=== PATIENT | female | born 1985 | race Hispanic/Latino ===

== ENCOUNTER 2017-11-06 12:43 | Emergency (ER) | payer SELFPAY ==
[2017-11-06] MEDS ORDERED: XYLOCAINE 1% MPF 5 mL INFILTRATI ONE (14:48)
[2017-11-06] MEDS ORDERED: LIDOCAINE VISCOUS 2% PO ONE (14:48)
[2017-11-06] MEDS ORDERED: TYLENOL PO ONE (14:48)
[2017-11-06] MEDS ORDERED: ROCEPHIN IM ONE (14:48)
--- NOTE | 2017-11-06 14:50 | Emergency Department Report ---
ED General Adult HPI - General Chief complaint: Sore Throat Stated complaint: STREP THROAT Time Seen by Provider: 11/06/17 14:41 Source: patient Mode of arrival: Ambulatory Limitations: No Limitations - History of Present Illness Initial comments: This is a 32-year-old female who is previously unknown to this provider. Has a history of DVT and is not currently on Lovenox. Also has a history of morbid obesity and inflamed tonsils. Presents to the ER with sore throat, neck pain, reported change in voice. Symptoms have been going on for the past few days. Her symptoms are intermittent, I do not have exacerbating or relieving factors. Reports that she recently had oral sex with a male partner who tested positive for gonorrhea/chlamydia. Patient reports that her tonsils are "always swollen" and this doesn't feel like her tonsils. -: Gradual Location: neck Radiation: non-radiation Quality: aching Consistency: intermittent Improves with: rest Worsens with: movement Associated Symptoms: other (patient reports feeling very anxious). denies: confusion, chest pain, cough, diaphoresis, fever/chills, headaches, loss of appetite, malaise, nausea/vomiting, shortness of breath, syncope, weakness - Related Data Previous Rx's Medication Instructions Recorded Last Taken Type Ondansetron [Zofran TAB] 4 mg PO Q6HR PRN #12 tablet 01/21/14 Unknown Rx HYDROcodone/APAP 10-325 [[place] 1 each PO Q6HR PRN #20 tablet 01/25/14 Unknown Rx 10/325] Sulfamethoxazole/Trimethoprim 1 each PO BID #28 tablet 01/25/14 Unknown Rx [Bactrim Ds] Acetaminophen/Codeine 1 tab PO Q6H PRN #15 tab 11/05/14 Unknown Rx [Acetaminophen-Codeine #3 TAB] Amoxicillin [Trimox CAP] 500 mg PO Q8H #30 capsule 11/05/14 Unknown Rx predniSONE [Deltasone] 50 mg PO QDAY #5 tab 11/05/14 Unknown Rx Enoxaparin [Lovenox] 180 mg SQ Q12HR #30 syringe 05/26/16 Unknown Rx Acetaminophen [Tylenol Arthritis] 650 mg PO Q6HR PRN #30 tablet.er 11/06/17 Unknown Rx Ibuprofen [Motrin] 600 mg PO Q8H PRN #30 tablet 11/06/17 Unknown Rx Ondansetron [Zofran Odt] 4 mg PO Q8HR PRN #20 tab.rapdis 11/06/17 Unknown Rx Allergies Allergy/AdvReac Type Severity Reaction Status Date / Time No Known Allergies Allergy Verified 11/08/13 09:56 ED Review of Systems ROS: Stated complaint: STREP THROAT Other details as noted in HPI ED Past Medical Hx - Past Medical History Previous Medical History?: Yes Hx Congestive Heart Failure: No Hx Diabetes: No Hx Deep Vein Thrombosis: Yes Hx Pulmonary Embolism: No Hx Asthma: No Hx COPD: No Hx Tuberculosis: No Additional medical history: morbid obesity - Surgical History Past Surgical History?: No - Social History Smoking Status: Never Smoker Substance Use Type: Non Opiate Pain - Medications Home Medications: Home Medications Medication Instructions Recorded Confirmed Last Taken Type Ondansetron [Zofran TAB] 4 mg PO Q6HR PRN #12 tablet 01/21/14 Unknown Rx HYDROcodone/APAP 10-325 [[place] 1 each PO Q6HR PRN #20 tablet 01/25/14 Unknown Rx 10/325] Sulfamethoxazole/Trimethoprim 1 each PO BID #28 tablet 01/25/14 Unknown Rx [Bactrim Ds] Acetaminophen/Codeine 1 tab PO Q6H PRN #15 tab 11/05/14 Unknown Rx [Acetaminophen-Codeine #3 TAB] Amoxicillin [Trimox CAP] 500 mg PO Q8H #30 capsule 11/05/14 Unknown Rx predniSONE [Deltasone] 50 mg PO QDAY #5 tab 11/05/14 Unknown Rx Enoxaparin [Lovenox] 180 mg SQ Q12HR #30 syringe 05/26/16 Unknown Rx Acetaminophen [Tylenol Arthritis] 650 mg PO Q6HR PRN #30 tablet.er 11/06/17 Unknown Rx Ibuprofen [Motrin] 600 mg PO Q8H PRN #30 tablet 11/06/17 Unknown Rx Ondansetron [Zofran Odt] 4 mg PO Q8HR PRN #20 tab.rapdis 11/06/17 Unknown Rx ED Physical Exam - General Limitations: No Limitations General appearance: alert, in no apparent distress, obese - Head Head exam: Present: atraumatic, normocephalic - Eye Eye exam: Present: normal appearance, EOMI - ENT ENT exam: Present: normal exam, normal orophraynx, mucous membranes moist, normal external ear exam, other (the patient is speaking in full sentences. There is no stridor. Patient has obvious hypertrophied tonsils. There are no obvious exudates. The uvula is not edematous or boggy) - Neck Neck exam: Present: normal inspection, full ROM - Respiratory Respiratory exam: Present: normal lung sounds bilaterally. Absent: respiratory distress - Cardiovascular Cardiovascular Exam: Present: normal rhythm, tachycardia, normal heart sounds. Absent: systolic murmur, diastolic murmur, rubs, gallop - GI/Abdominal GI/Abdominal exam: Present: soft, normal bowel sounds. Absent: distended, tenderness, guarding, rebound, rigid, pulsatile mass - Extremities Exam Extremities exam: Present: normal inspection, full ROM, normal capillary refill. Absent: pedal edema, joint swelling - Back Exam Back exam: Present: normal inspection, full ROM. Absent: paraspinal tenderness , vertebral tenderness - Neurological Exam Neurological exam: Present: alert, oriented X3, CN II-XII intact, normal gait, other (Extraocular movements intact. Tongue midline. No facial droop. Facial sensation intact to light touch in the V1, V2, V3 distribution bilaterally. 5 and 5 strength in 4 extremities.. Sensation is intact to light touch in 4 extremities.). Absent: motor sensory deficit - Psychiatric Psychiatric exam: Present: normal affect, normal mood - Skin Skin exam: Present: warm, dry, intact, normal color. Absent: rash ED Course Vital Signs 11/06/17 11/06/17 11/06/17 12:53 15:25 16:13 Temperature 98.1 F 97.5 F L Pulse Rate 112 H 108 H Respiratory 22 18 18 Rate Blood Pressure 159/88 Blood Pressure 134/88 [Right] O2 Sat by Pulse 98 100 Oximetry 11/06/17 11/06/17 16:25 17:56 Temperature Pulse Rate Respiratory 18 18 Rate Blood Pressure Blood Pressure [Right] O2 Sat by Pulse Oximetry - Reevaluation(s) Reevaluation #1: 11/06/17 16:30 Differential diagnosis, including without limited to: Epiglottitis, pharyngitis , gonococcal pharyngitis, uvulitis, tonsillitis Assessment and plan: 32-year-old female who endorses subjective change in voice , neck pain, sore throat. She is afebrile with reassuring vital signs with the exception of tachycardia. She has no stridor, and there is no pain with deep palpation of the superficial neck structures. She does endorse some concern about a recent sexual contact who's had gonorrhea. X-ray demonstrates nonspecific abnormalities of the epiglottic margins. Patient medicated empirically with ceftriaxone, azithromycin. CT scan of the neck is pending. Reevaluation #2: 11/06/17 18:21 CT scan shows cervical adenopathy, otherwisenegative in findings. Her tachycardia is much improved on my exam, and she reports that she feels much better. She is tolerating liquid feeds without difficulty, and has been observed under my direct supervision for over 5 hours. Patient will be discharged with instructions to follow with outpatient primary care and otolaryngology. CT scan report is reviewed and appreciated, tonsillar hypertrophy is noted on physical examination for patient this is chronic. ED Medical Decision Making - Lab Data Result diagrams: 11/06/17 16:45 11/06/17 16:45 Vital Signs 11/06/17 11/06/17 11/06/17 12:53 15:25 16:13 Temperature 98.1 F 97.5 F L Pulse Rate 112 H 108 H Respiratory 22 18 18 Rate Blood Pressure 159/88 Blood Pressure 134/88 [Right] O2 Sat by Pulse 98 100 Oximetry - Radiology Data Radiology results: report reviewed, image reviewed ort Referring Physician: MANNIE PARKER Patient Name: CARLOS MANUEL ENCARNACION Date of : 1985 Sex: Female Report Date: 2017-11-06 Report Status: Finalized Findings [address] [address] XRay Report Signed Patient: CARLOS MANUEL ENCARNACION MR#: [id number] : 1985 Acct:[id number] Age/Sex: 32 / F ADM Date: 11/06/17 Loc: ED Attending Dr: Ordering Physician: MANNIE PARKER MD Date of Service: 11/06/17 Procedure(s): XR neck soft tissue Accession Number(s): [id number] cc: MANNIE PARKER MD Fluoro Time In Minutes: FINAL REPORT EXAM: XR NECK SOFT TISSUE HISTORY: neck pain TECHNIQUE: AP and lateral views of the neck soft tissues PRIORS: None. FINDINGS: The tracheal air shadow is patent throughout. No prevertebral soft tissue swelling is seen. The epiglottis demonstrates hazy margins but normal thickness. Findings are likely related to motion. The adenoids and lingual tonsils are prominent. Bony structures demonstrate degenerative disc narrowing at C4-C5 with spurring anteriorly. IMPRESSION: 1. Prominent adenoids and lingual tonsils 2. Epiglottic margins are hazy which may be due to motion. Thickness is normal however. 3. Moderate disc space narrowing at C4-C5. Transcribed By: [facility] Dictated By: JUAN KONG MD Electronically Authenticated By: JUAN KONG MD Signed Date/Time: 11/06/171156 DD/ 56 TD/TT: 11/06/171156 Critical care attestation.: If time is entered above; I have spent that time in minutes in the direct care of this critically ill patient, excluding procedure time. ED Disposition Clinical Impression: Cervical lymphadenopathy Disposition: TO HOME OR SELFCARE Is pt being admited?: No Does the pt Need Aspirin: No Condition: Stable Instructions: Lymphadenopathy (ED) Additional Instructions: Cultures were sent today, results will be available in the next 3-5 days. Her primary care doctor contact the medical records department to obtain culture results. Follow-up with the primary care doctor for further outpatient STD testing/screening, including syphilis, hepatitis, HIV. Avoid sexual contact and into the see until cleared by her primary care doctor. Follow up with the primary care doctor or otolaryngology specialist for cervical lymph nodes. Dr. Srivastava is a local otolaryngology specialist. Return to the ER right away with fevers, chills, chest pain, shortness of breath, intractable nausea or vomiting , inability to speak, inability to breathe. Follow-up with the primary care doctor or [place] studies director within the next 2 weeks. Referrals: PRIMARY CARE, [Primary Care Provider] - 3-5 Days JUAN MONGE MD [Staff Physician] - 3-5 Days GERONIMO GILMORE MD [Staff Physician] - 3-5 Days
--- NOTE | 2017-11-06 15:59 | XRay Report ---
FINAL REPORT EXAM: XR NECK SOFT TISSUE HISTORY: neck pain TECHNIQUE: AP and lateral views of the neck soft tissues PRIORS: None. FINDINGS: The tracheal air shadow is patent throughout. No prevertebral soft tissue swelling is seen. The epiglottis demonstrates hazy margins but normal thickness. Findings are likely related to motion. The adenoids and lingual tonsils are prominent. Bony structures demonstrate degenerative disc narrowing at C4-C5 with spurring anteriorly. IMPRESSION: 1. Prominent adenoids and lingual tonsils 2. Epiglottic margins are hazy which may be due to motion. Thickness is normal however. 3. Moderate disc space narrowing at C4-C5.
[2017-11-06] MEDS ORDERED: ZITHROMAX ONE (16:10)
[2017-11-06] MEDS: ZITHROMAX PO ONE ×2 (16:11→16:47)
[2017-11-06 16:15] VITALS: BP 134/88
[2017-11-06] MEDS ORDERED: DECADRON IV ONE (16:27)
[2017-11-06] MEDS ORDERED: NACL 0.9% 500 ML 500 ML IV ONE (16:27)
[2017-11-06 17:00] LABS: Basophils % (Auto) 0.4 % (0.0-1.8); Eosinophils # (Auto) 0.1 K/mm3 (0.0-0.4); Eosinophils % (Auto) 0.6 % (0.0-4.3); Hematocrit 43.2 % (30.3-42.9); Hemoglobin 14.2 gm/dl (10.1-14.3); Lymphocytes # (Auto) 2.3 K/mm3 (1.2-5.4); Lymphocytes % (Auto) 20.5 % (13.4-35.0); Mean Corpuscular HGB Conc 33 % (30-34); Mean Corpuscular Hemoglobin 30 pg (28-32); Mean Corpuscular Volume 90 fl (79-97); Monocytes # (Auto) 0.9 K/mm3 (0.0-0.8); Monocytes % (Auto) 7.7 % (0.0-7.3); Platelet Count 273 K/mm3 (140-440); Red Blood Count 4.81 M/mm3 (3.65-5.03); Red Cell Distribution Width 14.5 % (13.2-15.2)
[2017-11-06 17:19] LABS: BUN/Creatinine Ratio 23; Blood Urea Nitrogen 14 mg/dL (7-17); Calcium 8.8 mg/dL (8.4-10.2); Hemolysis Index 11
[2017-11-06] MEDS ORDERED: NACL 0.9% 1000 ML 1,000 ML ONE (17:23)
[2017-11-06] MEDS ORDERED: TORADOL IV ONE (17:31)
--- NOTE | 2017-11-06 18:07 | Cat Scan Report ---
FINAL REPORT PROCEDURE: CT NECK W CON TECHNIQUE: Computerized axial tomography of the soft tissue neck was performed following the IV injection of iodinated nonionic contrast. HISTORY: neck pain COMPARISON: No prior studies are available for comparison. FINDINGS: Skull and scalp: Normal. Paranasal sinuses: Normal. Nasopharynx: Normal . Oral cavity: There is prominence of bilateral tonsillar pillars. Correlate with exam. No organized abscess is seen. Epiglottis/vallecula: Normal . Larynx/pyriform sinuses: Unremarkable. Thyroid gland: There is streak artifact. No gross abnormality is seen. Lymph nodes: There are significantly enlarged bilateral level 2 cervical lymph nodes, which measure up to 15 millimeters short axis. Salivary glands: Normal . Upper thorax: Normal . IMPRESSION: Significant bilateral cervical lymphadenopathy. Prominence of bilateral tonsillar pillars. Correlate with exam.
== END 2017-11-06 18:57 | disposition home or self-care (01) ==
LOC: ED 12:43
DX: R59.1 Generalized enlarged lymph nodes (principal)
CPT/HCPCS: 36415; 70360; 70491; 80048; 84702; 85025; 87591; 96372; 96374; 96375; 99284; J0696; J1100; J1885; J7030; Q9967

== ENCOUNTER 2017-12-25 12:57 | Emergency (ER) | payer SELFPAY ==
[2017-12-25] MEDS ORDERED: TYLENOL PO ONE (13:35)
[2017-12-25] MEDS ORDERED: NACL 0.9% 500 ML 500 ML IV ONE (13:35)
--- NOTE | 2017-12-25 13:37 | Event Note ---
Date: 12/25/17 32-year-old female presenting with left lower extremity pain, redness, swelling , on clinical exam resembles DVT versus lymphangitis, also complains of cough and shortness of breath. Patient reports being diagnosed with a blood clot at [facility] a few months ago, was on Coumadin therapy, and is now currently noncompliant. Of note, patient also had a throat culture here back in October which demonstrated gonorrhea, patient failed to follow-up. Patient will require CTA of the chest, labs, left lower extremity DVT study, and further management based on the aforementioned studies. Patient is hemodynamically stable at this time, and will be triaged to the main ER waiting area. Vital Signs 12/25/17 13:03 Temperature 98.0 F Pulse Rate 94 H Respiratory 18 Rate Blood Pressure 137/75 O2 Sat by Pulse 99 Oximetry
--- NOTE | 2017-12-25 13:57 | Emergency Department Report ---
ED General Adult HPI - General Chief complaint: Extremity Problem,Nontraumatic Stated complaint: LEFT LEG PAIN Time Seen by Provider: 12/25/17 13:25 Source: patient Mode of arrival: Ambulatory Limitations: No Limitations - History of Present Illness Initial comments: Patient is 32 years old morbidly obese female with history of DVT and PE in August 2017 patient stated that she was admitted to the hospital at [facility] for 7 days of heparin and then coumadin. Patient stated that she does not remember the last time she took her Coumadin because he ran out of it. She presented today with left leg pain and redness and swelling over the last 2-3 days associated with cough and shortness of breath patient stated that this is similar to her previous presentation. Patient denied any fever chest pain, nausea or vomiting. - Related Data Previous Rx's Medication Instructions Recorded Last Taken Type Ondansetron [Zofran TAB] 4 mg PO Q6HR PRN #12 tablet 01/21/14 Unknown Rx HYDROcodone/APAP 10-325 [[place] 1 each PO Q6HR PRN #20 tablet 01/25/14 Unknown Rx 10/325] Sulfamethoxazole/Trimethoprim 1 each PO BID #28 tablet 01/25/14 Unknown Rx [Bactrim Ds] Acetaminophen/Codeine 1 tab PO Q6H PRN #15 tab 11/05/14 Unknown Rx [Acetaminophen-Codeine #3 TAB] Amoxicillin [Trimox CAP] 500 mg PO Q8H #30 capsule 11/05/14 Unknown Rx predniSONE [Deltasone] 50 mg PO QDAY #5 tab 11/05/14 Unknown Rx Enoxaparin [Lovenox] 180 mg SQ Q12HR #30 syringe 05/26/16 Unknown Rx Acetaminophen [Tylenol Arthritis] 650 mg PO Q6HR PRN #30 tablet.er 11/06/17 Unknown Rx Ibuprofen [Motrin] 600 mg PO Q8H PRN #30 tablet 11/06/17 Unknown Rx Ondansetron [Zofran Odt] 4 mg PO Q8HR PRN #20 tab.rapdis 11/06/17 Unknown Rx Allergies Allergy/AdvReac Type Severity Reaction Status Date / Time No Known Allergies Allergy Verified 11/08/13 09:56 ED Review of Systems ROS: Stated complaint: LEFT LEG PAIN Other details as noted in HPI Comment: All other systems reviewed and negative Constitutional: denies: chills, fever Respiratory: cough, shortness of breath, SOB with exertion Cardiovascular: denies: chest pain, palpitations, dyspnea on exertion Gastrointestinal: denies: abdominal pain, nausea, vomiting, diarrhea, constipation, hematemesis Neurological: denies: headache, weakness, numbness, paresthesias ED Past Medical Hx - Past Medical History Hx Congestive Heart Failure: No Hx Diabetes: No Hx Deep Vein Thrombosis: Yes Hx Pulmonary Embolism: No Hx Asthma: No Hx COPD: No Hx Tuberculosis: No Additional medical history: morbid obesity - Social History Smoking Status: Never Smoker Substance Use Type: None - Medications Home Medications: Home Medications Medication Instructions Recorded Confirmed Last Taken Type Ondansetron [Zofran TAB] 4 mg PO Q6HR PRN #12 tablet 01/21/14 Unknown Rx HYDROcodone/APAP 10-325 [[place] 1 each PO Q6HR PRN #20 tablet 01/25/14 Unknown Rx 10/325] Sulfamethoxazole/Trimethoprim 1 each PO BID #28 tablet 01/25/14 Unknown Rx [Bactrim Ds] Acetaminophen/Codeine 1 tab PO Q6H PRN #15 tab 11/05/14 Unknown Rx [Acetaminophen-Codeine #3 TAB] Amoxicillin [Trimox CAP] 500 mg PO Q8H #30 capsule 11/05/14 Unknown Rx predniSONE [Deltasone] 50 mg PO QDAY #5 tab 11/05/14 Unknown Rx Enoxaparin [Lovenox] 180 mg SQ Q12HR #30 syringe 05/26/16 Unknown Rx Acetaminophen [Tylenol Arthritis] 650 mg PO Q6HR PRN #30 tablet.er 11/06/17 Unknown Rx Ibuprofen [Motrin] 600 mg PO Q8H PRN #30 tablet 11/06/17 Unknown Rx Ondansetron [Zofran Odt] 4 mg PO Q8HR PRN #20 tab.rapdis 11/06/17 Unknown Rx ED Physical Exam - General Limitations: No Limitations General appearance: alert, in no apparent distress - Head Head exam: Present: atraumatic, normocephalic - ENT ENT exam: Present: normal exam, normal orophraynx, mucous membranes moist - Neck Neck exam: Present: normal inspection, full ROM. Absent: tenderness, meningismus - Respiratory Respiratory exam: Present: normal lung sounds bilaterally. Absent: respiratory distress, wheezes, rales, rhonchi, stridor - Cardiovascular Cardiovascular Exam: Present: regular rate, normal rhythm, normal heart sounds - GI/Abdominal GI/Abdominal exam: Present: soft. Absent: distended, tenderness, guarding, rebound, rigid - Extremities Exam Extremities exam: Present: tenderness, other (left leg tenderness and erythema.) - Back Exam Back exam: Present: normal inspection, full ROM - Neurological Exam Neurological exam: Present: alert, oriented X3, CN II-XII intact, normal gait - Skin Skin exam: Present: warm, intact, normal color ED Course Vital Signs 12/25/17 13:03 Temperature 98.0 F Pulse Rate 94 H Respiratory 18 Rate Blood Pressure 137/75 O2 Sat by Pulse 99 Oximetry - Reevaluation(s) Reevaluation #1: 12/25/17 16:07 Patient informed about our ultrasound of the left lower leg and CTA of the chest. I advised patient to follow-up with her primary care physician. Patient pulmonary that she was on 15 mg of Coumadin and I will give 10 day supply until she will see her doctor. I advised that to check her INR in the next 2-3 days. Patient understood the instruction and she stated that she will follow up with a primary doctor. Patient is currently asymptomatic with no chest pain or shortness of breath. ED Medical Decision Making - Lab Data Result diagrams: 12/25/17 13:43 12/25/17 13:43 - Radiology Data Radiology results: report reviewed Referring Physician: MANNIE PARKER Patient Name: CARLOS MANUEL ENCARNACION Date of : 1985 Sex: Female Report Date: 2017-12-25 Report Status: Finalized Findings [facility] [address] [place] [address] Cat Scan Report Signed Patient: CARLOS MANUEL ENCARNACION MR#: [id number] : 1985 Acct:[id number] Age/Sex: 32 / F ADM Date: 12/25/17 Loc: ED Attending Dr: Ordering Physician: MANNIE PARKER MD Date of Service: 12/25/17 Procedure(s): CT angio chest Accession Number(s): [id number] cc: MANNIE PARKER MD FINAL REPORT EXAM: CT ANGIO CHEST HISTORY: sob cough hx of pe TECHNIQUE: CTA of chest with IV contrast. Coronal and sagittal and MIP reconstructed images provided. PRIORS: None currently available. FINDINGS: No pneumothorax. No effusion. No consolidation. No endobronchial lesion. Suboptimal contrast effect. No pulmonary embolus in the main pulmonary artery. An embolus in the distal half of the right and left pulmonary arteries, lobar arteries, segmental arteries, and subsegmental arteries cannot be excluded. No aortic aneurysm. No dissection. Heart size unremarkable. No pericardial effusion. There is no axillary adenopathy. There is no hilar or mediastinal mass or adenopathy. Images of the esophagus are unremarkable. Small hiatal hernia. Partially imaged gallbladder suggest gallstones. Partially imaged spleen is enlarged. No suspicious osseous lesions on this limited examination of the skeleton. Metastatic disease better evaluated with bone scan. Degenerative changes are present in the spine. IMPRESSION: Suboptimal contrast effect. No pulmonary embolus in the main pulmonary artery. An embolus in the distal half of the right and left pulmonary arteries, lobar arteries, segmental arteries, and subsegmental arteries cannot be excluded. No aortic aneurysm or dissection. Possible gallstones. Small hiatal hernia. Suspect splenomegaly. Transcribed By: [facility] Dictated By: JOSE MARIA ARMSTRONG MD Electronically Authenticated By: JOSE MARIA ARMSTRONG MD Signed Date/Time: 12/25/171542 DD/ 42 TD/TT: 12/25/171542 Critical care attestation.: If time is entered above; I have spent that time in minutes in the direct care of this critically ill patient, excluding procedure time. ED Disposition Clinical Impression: Shortness of breath, Obesities, morbid, Superficial thrombophlebitis Disposition: TO HOME OR SELFCARE Is pt being admited?: No Condition: Stable Instructions: Superficial Thrombophlebitis (ED), Dyspnea (ED) Referrals: ENRIQUE GARCIA MD [Staff Physician] - 2-3 Days
[2017-12-25 14:02] LABS: Basophils % (Auto) 0.4 % (0.0-1.8); Eosinophils # (Auto) 0.2 K/mm3 (0.0-0.4); Hematocrit 42.3 % (30.3-42.9); Hemoglobin 13.5 gm/dl (10.1-14.3); Lymphocytes # (Auto) 2.4 K/mm3 (1.2-5.4); Mean Corpuscular HGB Conc 32 % (30-34); Mean Corpuscular Hemoglobin 29 pg (28-32); Mean Corpuscular Volume 91 fl (79-97); Monocytes # (Auto) 0.6 K/mm3 (0.0-0.8); Monocytes % (Auto) 7.1 % (0.0-7.3); Platelet Count 222 K/mm3 (140-440); Red Blood Count 4.63 M/mm3 (3.65-5.03); Red Cell Distribution Width 14.3 % (13.2-15.2)
[2017-12-25 14:10] LABS: BUN/Creatinine Ratio 18; Blood Urea Nitrogen 11 mg/dL (7-17); Calcium 8.6 mg/dL (8.4-10.2); Hemolysis Index 7
[2017-12-25 14:14] LABS: INR 0.88 (0.87-1.13)
[2017-12-25 14:15] LABS: Partial Thromboplastin Time 26.5 Sec. (24.2-36.6)
[2017-12-25] MEDS ORDERED: MORPHINE IV ONE (15:22)
[2017-12-25] MEDS ORDERED: ZOFRAN IV ONE (15:22)
--- NOTE | 2017-12-25 15:48 | Cat Scan Report ---
FINAL REPORT EXAM: CT ANGIO CHEST HISTORY: sob cough hx of pe TECHNIQUE: CTA of chest with IV contrast. Coronal and sagittal and MIP reconstructed images provided. PRIORS: None currently available. FINDINGS: No pneumothorax. No effusion. No consolidation. No endobronchial lesion. Suboptimal contrast effect. No pulmonary embolus in the main pulmonary artery. An embolus in the distal half of the right and left pulmonary arteries, lobar arteries, segmental arteries, and subsegmental arteries cannot be excluded. No aortic aneurysm. No dissection. Heart size unremarkable. No pericardial effusion. There is no axillary adenopathy. There is no hilar or mediastinal mass or adenopathy. Images of the esophagus are unremarkable. Small hiatal hernia. Partially imaged gallbladder suggest gallstones. Partially imaged spleen is enlarged. No suspicious osseous lesions on this limited examination of the skeleton. Metastatic disease better evaluated with bone scan. Degenerative changes are present in the spine. IMPRESSION: Suboptimal contrast effect. No pulmonary embolus in the main pulmonary artery. An embolus in the distal half of the right and left pulmonary arteries, lobar arteries, segmental arteries, and subsegmental arteries cannot be excluded. No aortic aneurysm or dissection. Possible gallstones. Small hiatal hernia. Suspect splenomegaly.
[2017-12-25 17:31] VITALS: BP 138/69
--- NOTE | 2017-12-29 10:42 | Vascular Lab Report ---
Left Lower Extremity Venous Duplex Study: Reason for Exam: Pain and swelling of the left lower extremity. Comments on the Right: A limited duplex study was done of the proximal veins of the right lower extremity. All veins visualized are freely compressible without evidence of internal echogenicity. Flow is spontaneous and phasic throughout. No evidence of acute or chronic thrombus is seen in any of the vessels visualized. Comments on the Left: Acute superficial venous thrombosis is seen in the greater saphenous vein extending from the distal thigh to the medial malleolus. The left popliteal vein has partially occluding chronic thrombus visible. The remaining veins visualized are freely compressible without evidence of internal echogenicity. Spontaneous and phasic flow is present proximally. Impression: Acute superficial venous thrombosis of the greater saphenous vein from the distal thigh to the medial malleolus of the left lower extremity. 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
== END 2017-12-25 17:31 | disposition home or self-care (01) ==
LOC: ED 12:57
DX: I80.292 Phlebitis and thrombophlebitis of other deep vessels of left lower extremity (principal); R06.00 Dyspnea, unspecified; Z86.718 Personal history of other venous thrombosis and embolism; Z86.711 Personal history of pulmonary embolism; Z79.02 Long term (current) use of antithrombotics/antiplatelets
CPT/HCPCS: 36415; 71275; 80048; 82550; 84702; 85025; 85610; 85730; 93971; 96374; 96375; 99284; J2270; J2405; J7040; Q9967

== ENCOUNTER 2018-01-30 19:45 | Emergency (ER) | payer OTHER ==
[2018-01-30] MEDS ORDERED: PERCOCET 5/325 ONE (19:58)
[2018-01-30] MEDS ORDERED: PERCOCET 5/325 PO PRN (20:01)
--- NOTE | 2018-01-30 20:37 | XRay Report ---
FINAL REPORT PROCEDURE: XR FOOT 3+V LT TECHNIQUE: LEFT foot radiographs, AP, lateral, and oblique views. CPT 31063 HISTORY: bruising/swelling lt foot injury COMPARISON: No prior studies are available for comparison. FINDINGS: Fracture (s) and/or Dislocation(s): Acute comminuted nondisplaced fractures are noted involving head and neck regions of 3rd through 5th metatarsals.. Alignment: Metatarsophalangeal joints and the other joints of the foot demonstrate normal alignment.. Joint space(s): Normal . Soft tissues: Moderate degree soft tissue swelling is noted over the dorsal aspect. Bone mineralization: Normal . Foreign bodies: None . Calcaneal spurring: Small calcaneal spur is noted. IMPRESSION: Acute fractures of 3rd through 5th metatarsals..
--- NOTE | 2018-01-30 23:46 | Emergency Department Report ---
ED Lower Extremity HPI - General Chief Complaint: Extremity Injury, Lower Stated Complaint: LEFT TOE PAIN Time Seen by Provider: 01/30/18 23:38 Source: patient, family Mode of arrival: Ambulatory Limitations: No Limitations - History of Present Illness Initial Comments: She reported that she fell down 2 steps and she fell and hit and twisted her left foot. She said her left toes was spent. She is reporting pain at 10 out of 10. Patient is a history of DVT and morbid obesity. She reports that she is taking Coumadin for history of DVT. Last menstrual period was 12/16/2017. Pain to her left foot is 10 out of 10 throbbing and achy . She denies any head injury. Injury is localized to her left foot. No medication prior to coming to the emergency room. She says she put some ice on it and it did not work. Pain worse with weightbearing and movement, touch better with rest. Positive numbness or tingling to her foot. MD Complaint: foot injury, fall -: This evening Injury: Foot: Left (left foot swelling, bruises and painful after injury), Toes : Left (left small toe with laceration) Type of Injury: hyperextension, laceration Place: home Severity: severe Severity scale (0 -10): 10 Improves With: cold therapy, immobilization Worsens With: weight bearing, movement, palpation Context: fall, walking Associated Symptoms: swelling, unable to bear weight. denies: snap/pop sensation, numbness, tingling Treatments Prior to Arrival: cold therapy - Related Data Previous Rx's Medication Instructions Recorded Last Taken Type Ondansetron [Zofran TAB] 4 mg PO Q6HR PRN #12 tablet 01/21/14 Unknown Rx HYDROcodone/APAP 10-325 [[place] 1 each PO Q6HR PRN #20 tablet 01/25/14 Unknown Rx 10/325] Sulfamethoxazole/Trimethoprim 1 each PO BID #28 tablet 01/25/14 Unknown Rx [Bactrim Ds] Acetaminophen/Codeine 1 tab PO Q6H PRN #15 tab 11/05/14 Unknown Rx [Acetaminophen-Codeine #3 TAB] Amoxicillin [Trimox CAP] 500 mg PO Q8H #30 capsule 11/05/14 Unknown Rx predniSONE [Deltasone] 50 mg PO QDAY #5 tab 11/05/14 Unknown Rx Enoxaparin [Lovenox] 180 mg SQ Q12HR #30 syringe 05/26/16 Unknown Rx Acetaminophen [Tylenol Arthritis] 650 mg PO Q6HR PRN #30 tablet.er 11/06/17 Unknown Rx Ondansetron [Zofran Odt] 4 mg PO Q8HR PRN #20 tab.rapdis 11/06/17 Unknown Rx Warfarin Sodium [Coumadin] 15 mg PO DAILY #10 tablet 12/25/17 Unknown Rx Cephalexin [Keflex] 500 mg PO Q8HR 10 Days #30 cap 01/31/18 Unknown Rx HYDROcodone/ACETAMINOPHEN [[place] 1 each PO Q6H PRN #12 tablet 01/31/18 Unknown Rx 7.5-325 Tablet] Ibuprofen [Motrin 600 MG tab] 600 mg PO Q8H PRN #21 tablet 01/31/18 Unknown Rx Allergies Allergy/AdvReac Type Severity Reaction Status Date / Time No Known Allergies Allergy Verified 11/08/13 09:56 ED Review of Systems ROS: Stated complaint: LEFT TOE PAIN Other details as noted in HPI Comment: All other systems reviewed and negative Constitutional: no symptoms reported Eyes: denies: eye discharge Respiratory: no symptoms reported Cardiovascular: denies: chest pain, palpitations, dyspnea on exertion, edema, syncope, paroxysmal nocturnal dyspnea Gastrointestinal: denies: abdominal pain, nausea, vomiting, diarrhea Genitourinary: denies: dysuria, hematuria Musculoskeletal: joint swelling, arthralgia. denies: back pain, myalgia Skin: change in color (bruises and to left foot and laceration to left small toe ) Neurological: abnormal gait. denies: headache, weakness, numbness, paresthesias ED Past Medical Hx - Past Medical History Previous Medical History?: Yes Hx Congestive Heart Failure: No Hx Diabetes: No Hx Deep Vein Thrombosis: Yes Hx Pulmonary Embolism: No Hx Asthma: No Hx COPD: No Hx Tuberculosis: No Additional medical history: morbid obesity - Surgical History Past Surgical History?: No - Family History Family history: no significant - Social History Smoking Status: Never Smoker Substance Use Type: None - Medications Home Medications: Home Medications Medication Instructions Recorded Confirmed Last Taken Type Ondansetron [Zofran TAB] 4 mg PO Q6HR PRN #12 tablet 01/21/14 Unknown Rx HYDROcodone/APAP 10-325 [[place] 1 each PO Q6HR PRN #20 tablet 01/25/14 Unknown Rx 10/325] Sulfamethoxazole/Trimethoprim 1 each PO BID #28 tablet 01/25/14 Unknown Rx [Bactrim Ds] Acetaminophen/Codeine 1 tab PO Q6H PRN #15 tab 11/05/14 Unknown Rx [Acetaminophen-Codeine #3 TAB] Amoxicillin [Trimox CAP] 500 mg PO Q8H #30 capsule 11/05/14 Unknown Rx predniSONE [Deltasone] 50 mg PO QDAY #5 tab 11/05/14 Unknown Rx Enoxaparin [Lovenox] 180 mg SQ Q12HR #30 syringe 05/26/16 Unknown Rx Acetaminophen [Tylenol Arthritis] 650 mg PO Q6HR PRN #30 tablet.er 11/06/17 Unknown Rx Ondansetron [Zofran Odt] 4 mg PO Q8HR PRN #20 tab.rapdis 11/06/17 Unknown Rx Warfarin Sodium [Coumadin] 15 mg PO DAILY #10 tablet 12/25/17 Unknown Rx Cephalexin [Keflex] 500 mg PO Q8HR 10 Days #30 cap 01/31/18 Unknown Rx HYDROcodone/ACETAMINOPHEN [[place] 1 each PO Q6H PRN #12 tablet 01/31/18 Unknown Rx 7.5-325 Tablet] Ibuprofen [Motrin 600 MG tab] 600 mg PO Q8H PRN #21 tablet 01/31/18 Unknown Rx ED Physical Exam - General Limitations: No Limitations General appearance: alert, in no apparent distress - Head Head exam: Present: atraumatic, normocephalic, normal inspection, other (normal examination) - Eye Eye exam: Present: normal appearance, PERRL, EOMI. Absent: nystagmus, periorbital swelling, periorbital tenderness Pupils: Present: normal accommodation - ENT ENT exam: Present: normal exam, normal orophraynx, mucous membranes moist - Neck Neck exam: Present: normal inspection, full ROM, other (no C-spine tenderness). Absent: tenderness, lymphadenopathy - Respiratory Respiratory exam: Present: normal lung sounds bilaterally. Absent: respiratory distress, chest wall tenderness - Cardiovascular Cardiovascular Exam: Present: normal rhythm, tachycardia, normal heart sounds - GI/Abdominal GI/Abdominal exam: Present: soft, rigid, normal bowel sounds. Absent: distended , tenderness, guarding, rebound, organomegaly, mass, bruit, pulsatile mass, hernia - Extremities Exam Extremities exam: Present: normal inspection, tenderness ( due to pain and injury left dorsal and plantar aspect of foot.), normal capillary refill, pedal edema (left foot), joint swelling (left foot), other (no clubbing or cyanosis to extremities. Patient with swelling to left foot. Unable to weight-bear on left foot due to injury. She has bruises and an ecchymotic area to left foot. Patient will laceration to left foot otherwise all other extremities are within normal limits. +2 pedal pulses. No neurovascular compromise to the extremities.). Absent: full ROM (Limited range of motion to left foot), calf tenderness - Expanded Lower Extremity Exam Left Hip exam: Present: normal inspection, full ROM, pelvic stability. Absent: tenderness, swelling, abrasion, laceration, ecchymosis, deformity, crepidus, dislocation, erythema, external rotation, internal rotation, shortening Upper Leg exam: Present: normal inspection, full ROM. Absent: tenderness, swelling, abrasion, laceration, ecchymosis, deformity, crepidus, dislocation, erythema Knee exam: Present: normal inspection, full ROM, full knee extension. Absent: tenderness, swelling, abrasion, laceration, ecchymosis, deformity, crepidus, dislocation, erythema, effusion, pain w/ pronation/supination, posterior draw sign, pain/laxity with valgus, pain/laxity with varus Lower Leg exam: Present: normal inspection, full ROM. Absent: tenderness, swelling, abrasion, laceration, ecchymosis, deformity, crepidus, dislocation, erythema, palpable cord, Dang's sign Ankle exam: Present: normal inspection, full ROM. Absent: tenderness, swelling , abrasion, laceration, ecchymosis, deformity, crepidus, dislocation, erythema Foot/Toe exam: Present: tenderness (left anterior and plantar aspect of foot), swelling (left foot including third fourth and fifth toes), laceration (left small toe), ecchymosis (left foot), tenderness at base of 5th metatarsal. Absent: normal inspection, full ROM (Limited range of motion to left foot), abrasion, deformity, crepidus, dislocation, erythema, amputation, puncture wound , foreign body, calcaneal tenderness, nail avulsion, subungual hematoma Neuro vascular tendon exam: Present: motor deficit (positive motor deficit to left foot due to injury, swelling and unable able to weight-bear. She has 3+ strength to left foot.), significant pain with passive ROM of distal joint. Absent: no vascular compromise, sensory deficit, tendon deficit, extremity cold to touch, pallor, abnormal 2-point discrimination, decreased fine/light touch, foot drop, peroneal nerve deficit Gait: Positive: unable to bear weight - Back Exam Back exam: Present: normal inspection, full ROM. Absent: tenderness, CVA tenderness (R), CVA tenderness (L), muscle spasm, paraspinal tenderness, vertebral tenderness, rash noted - Neurological Exam Neurological exam: Present: alert, oriented X3, abnormal gait (abnormal gait due to left foot injury.), motor sensory deficit (no sensory deficit but positive motor deficit due to decreased strength to left foot of 3/10.), reflexes normal - Psychiatric Psychiatric exam: Present: normal affect, normal mood - Skin Skin exam: Present: warm, dry, ecchymosis (ecchymotic to left foot dorsal aspect ), other (laceration to left fifth toe). Absent: cyanosis, diaphoretic, erythema, petechiae, pallor, abrasion - Expanded Skin Exam Expanded Type of lesion: Present: laceration (left fifth toe) Distribution of rash: LLE (left fifth toe) Description of rash: Present: size (circular 2 cm), tenderness, swelling. Absent: petechial, discharge, fluctuant, indurated ED Course Vital Signs 01/30/18 01/30/18 19:49 20:26 Temperature 98 F Pulse Rate 118 H Respiratory 20 18 Rate Blood Pressure 140/83 O2 Sat by Pulse 98 Oximetry Vital Signs 01/30/18 01/30/18 01/31/18 19:49 20:26 05:10 Temperature 98 F 98.0 F Pulse Rate 118 H 87 Respiratory 20 18 18 Rate Blood Pressure 140/83 Blood Pressure 114/81 [Left] O2 Sat by Pulse 98 100 Oximetry - Reevaluation(s) Reevaluation #1: 01/31/18 01:34 Patient received Ancef 1 g IM in emergency room for infection, Valium 10 mg by mouth 1, Benadryl 50 mg by mouth 1. She received oxycodone 2 tablets by mouth 1 and prior to coming back to the emergency room she received oxycodone 1 tablet by mouth. She also received booster 0.5 mL times one injection. Patient pain is better. Reevaluation #2: 01/31/18 04:35 Laceration to left fifth toe repaired please refer to procedure note for detail. Patient also with left posterior splint. Please refer to procedure note for detail she was given crutches. Patient hasn't tolerated suturing and splinting well. - Consultations Consultation #1: 01/31/18 00:[address] Cordell campbell regarding patient's fracture and he wants patient to be in a posterior splint with crutches and for patient to call this morning to schedule an appointment for follow-up visits. - Laceration /Wound Repair Left Posterior Lateral Plantar Toe Wound Location: lower extremity (left small toe) Wound Length (cm): 2 Wound's Depth, Shape: into muscle, irregular, stellate, contused tissue Wound Explored: no foreign body removed Irrigated w/ Saline (ccs): 500 Betadine Prep?: Yes Anesthesia: 0.5% Sensorcaine (0.5% Marcaine) Volume Anesthetic (ccs): 2 Wound Debrided: moderate Wound Repaired With: sutures Suture Size/Type: 3:0, proline Number of Sutures: 12 Layer Closure?: Yes Deep Layer Suture Size/Type: 5:0, chromic Number Deep Layer Sutures: 4 Sterile Dressing Applied?: Yes - Orthopedic Splinting/Casting Injury #1 Side: left Lower Extremity Injury Location: foot Lower Extremity Immobilizer: posterior splint Other Orthopedic Equipment: crutches Additional Comments: Status post splint placement patient will good color, sensation, temperature and movement to toes on left foot. ED Lower Extremity MDM - Radiology Data Radiology results: report reviewed X-ray of left foot reveals acute comminuted nondisplaced fractures are noted involving head and neck regions of third through fifth metatarsals. Metatarsophalangeal joints and other joints of the foot demonstrate normal alignment. Joint spaces are normal. Soft tissue moderate degree of soft tissue swelling is noted over the dorsal aspect. Bone mineralization normal foreign body none seen calcaneal spurring: Small calcaneus burn is noted. Patient with acute fractures of third through fifth metatarsals home. - Medical Decision Making ED course: Patient status post falling down 2 steps without any head injury but she twisted her foot and said that her foot was bent severely. X-ray of the left foot reveal patient with fractured tooth third through fifth metatarsal bone. She has significant soft tissue swelling dorsal aspect and also she has laceration to her left fifth toe. Please refer to x-ray results of the radiology section. Patient had a posterior ankle splint placed with crutches. Status post splint placement and she has good neurovascular check. Please refer to procedure note for splinting, crutches and suturing. Patient received a total of 3 Percocet throughout ED stay 5/325 mg for pain talk, she received Valium 10 mg by mouth, Ancef 1 g IM, Benadryl 50 mg by mouth 1. And she also receive Boostrix 0.5 mL to update tetanus. Patient stable throughout ED stay and her pain is better. Patient is at risk for DVT due to splinting in an she' s had previous episode of DVT in the past. She is on Coumadin for previous DVT. Information given on splint and suture care. Patient's Ancef that she has to return to her primary care clinic or the emergency room and 10 days to have sutures remove and she needs to follow up with Dr. Landa called this morning to schedule an appointment for Wednesday. Patient educated on signs of pulmonary embolism and DVT and she voiced understanding. Discharged home with significant other with prescription for Keflex, Motrin and [place]. Critical care attestation.: If time is entered above; I have spent that time in minutes in the direct care of this critically ill patient, excluding procedure time. ED Disposition Clinical Impression: Arthralgia of left foot Foot fracture, left Qualifiers: Encounter type: initial encounter Fracture type: closed Qualified Code(s): S92.902A - Unspecified fracture of left foot, initial encounter for closed fracture Fall, accidental Qualifiers: Encounter type: initial encounter Qualified Code(s): W19.XXXA - Unspecified fall, initial encounter Contusion of left foot including toes Qualifiers: Encounter type: initial encounter Qualified Code(s): S90.32XA - Contusion of left foot, initial encounter Laceration of toe of left foot Qualifiers: Encounter type: initial encounter Toe: lesser toe Damage to nail status: without damage Foreign body presence: without foreign body Qualified Code(s): S91.115A - Laceration without foreign body of left lesser toe(s) without damage to nail, initial encounter Disposition: DC-01 TO HOME OR SELFCARE Is pt being admited?: No Does the pt Need Aspirin: No Condition: Stable Instructions: Suture Care (ED), Crutch Instructions (ED), Laceration (ED), Foot Fracture in Adults (ED), Splint Care (ED), Foot Contusion (ED), Arthralgia (ED), RICE Therapy (ED) Additional Instructions: Please follow up at Dr. Joseph Landa's office on Thursday February 01, 2018. He wants you to call this morning to schedule an appointment. Please follow discharge instruction and splint care. You are at risk for DVT and although urine chlamydia and you need to follow up with your Coumadin clinic to make sure that you're PT/INR is in with stable limits per your doctor. Please do not drive or operate heavy machinery while taking [place] as this medication causes drowsiness. Take Keflex antibiotic Use crutches and instructed Rice therapy per discharge instructions Follow-up via primary care physician and if he do not have a primary care physician he can follow up at [facility] for primary care. Take Motrin for mild to moderate pain Follow discharge instructions on splint care Please return to urgent care/primary care and/or emergency room to have stitches removed in 10 days. Prescriptions: Cephalexin [Keflex] 500 mg PO Q8HR 10 Days #30 cap HYDROcodone/ACETAMINOPHEN [[place] 7.5-325 Tablet] 1 each PO Q6H PRN #12 tablet PRN Reason: severe pain Ibuprofen [Motrin 600 MG tab] 600 mg PO Q8H PRN #21 tablet PRN Reason: Pain Referrals: JOSEPH LANDA MD [Staff Physician] - 02/01/[address] [facility] [Outside] - 2-3 Days Forms: Accompanied Note, Work/School Release Form(ED)
[2018-01-30] MEDS ORDERED: VALIUM PO ONE (23:55)
[2018-01-30] MEDS ORDERED: PERCOCET 5/325 PO ONE (23:57)
[2018-01-30] MEDS ORDERED: BENADRYL PO ONE (23:57)
[2018-01-30] MEDS ORDERED: ANCEF IM ONE (23:58)
[2018-01-30] MEDS ORDERED: BOOSTRIX IM ONE (23:58)
[2018-01-31] MEDS ORDERED: NACL 0.9% 500 ML IR ONE (02:38)
[2018-01-31] MEDS ORDERED: NACL 0.9% IR ONE (02:39)
[2018-01-31 05:21] VITALS: BP 114/81
== END 2018-01-31 05:10 | disposition home or self-care (01) ==
LOC: ED 19:45
DX: S92.335A Nondisplaced fracture of third metatarsal bone, left foot, initial encounter for closed fracture (principal); S92.345A Nondisplaced fracture of fourth metatarsal bone, left foot, initial encounter for closed fracture; S92.355A Nondisplaced fracture of fifth metatarsal bone, left foot, initial encounter for closed fracture; S91.115A Laceration without foreign body of left lesser toe(s) without damage to nail, initial encounter; E66.01 Morbid (severe) obesity due to excess calories; Z68.45 Body mass index [BMI] 70 or greater, adult; W10.9XXA Fall (on) (from) unspecified stairs and steps, initial encounter; Y93.01 Activity, walking, marching and hiking; Y99.8 Other external cause status; Y92.009 Unspecified place in unspecified non-institutional (private) residence as the place of occurrence of the external cause
CPT/HCPCS: 12041; 29515; 73630; 90471; 90715; 96372; 99283; J0690

== ENCOUNTER 2019-09-22 23:08 | Emergency (ER) | payer SELFPAY ==
[2019-09-23 02:04] LABS: Basophils % (Auto) 0.4 % (0.0-1.8); Eosinophils # (Auto) 0.2 K/mm3 (0.0-0.4); Eosinophils % (Auto) 1.9 % (0.0-4.3); Hematocrit 42.1 % (30.3-42.9); Hemoglobin 14.1 gm/dl (10.1-14.3); Lymphocytes % (Auto) 31.4 % (13.4-35.0); Mean Corpuscular HGB Conc 34 % (30-34); Mean Corpuscular Volume 91 fl (79-97); Monocytes # (Auto) 0.8 K/mm3 (0.0-0.8); Monocytes % (Auto) 8.1 % (0.0-7.3); Platelet Count 227 K/mm3 (140-440); Red Blood Count 4.63 M/mm3 (3.65-5.03); Red Cell Distribution Width 13.5 % (13.2-15.2)
[2019-09-23 02:24] LABS: Alanine Aminotransferase 15 units/L (7-56); Albumin 3.5 g/dL (3.9-5); BUN/Creatinine Ratio 25; Blood Urea Nitrogen 20 mg/dL (7-17); Calcium 8.7 mg/dL (8.4-10.2); Hemolysis Index 11
[2019-09-23] MEDS ORDERED: IBUPROFEN 800 MG TAB PO ONE (03:53)
[2019-09-23] MEDS ORDERED: CYCLOBENZAPRINE 10 MG TAB PO ONE (03:53)
[2019-09-23 04:12] LABS: Bacteria,Urine 1+ /HPF (Negative); Bilirubin,Urine NEG (Negative); Blood,Urine NEG (Negative); Color,Urine Yellow (Yellow); Protein,Urine <15 mg/dL mg/dL (Negative); Urobilinogen,Urine < 2.0 mg/dL (<2.0)
--- NOTE | 2019-09-23 05:32 | Emergency Department Report ---
ED General Adult HPI - General Chief complaint: Abdominal Pain Stated complaint: NAUSEA,STOMACH CRAMPING Source: patient Mode of arrival: Ambulatory Limitations: No Limitations - History of Present Illness Initial comments: Patient is a 34-year-old white female with a history of morbid obesity who presents to the ED with bilateral flank pain with intermittent nausea and vomiting for the last 4 days. Patient denies fall, traumatic injury, heavy lifting, nausea, vomiting, diarrhea, hematuria, dysuria, urinary frequency and urgency, chest pain or shortness of breath, low back pain or hemoptysis and hematochezia. MD Complaint: Bilateral flank pain; Muscle strain of abdominal wall -: Sudden, days(s) (4) Location: abdomen Radiation: non-radiation Severity scale (0 -10): 8 Quality: aching, sharp Consistency: intermittent Improves with: none Worsens with: none Associated Symptoms: denies other symptoms. denies: confusion, chest pain, cough, diaphoresis, fever/chills, headaches, loss of appetite, malaise, nausea/vomiting, rash, seizure, shortness of breath, syncope, weakness Treatments Prior to Arrival: none - Related Data Previous Rx's Medication Instructions Recorded Last Taken Type Ondansetron [Zofran TAB] 4 mg PO Q6HR PRN #12 tablet 01/21/14 Unknown Rx HYDROcodone/APAP 10-325 [Posen 1 each PO Q6HR PRN #20 tablet 01/25/14 Unknown Rx 10/325] Sulfamethoxazole/Trimethoprim 1 each PO BID #28 tablet 01/25/14 Unknown Rx [Bactrim Ds] Acetaminophen/Codeine 1 tab PO Q6H PRN #15 tab 11/05/14 Unknown Rx [Acetaminophen-Codeine #3 TAB] Amoxicillin [Trimox CAP] 500 mg PO Q8H #30 capsule 11/05/14 Unknown Rx predniSONE [Deltasone] 50 mg PO QDAY #5 tab 11/05/14 Unknown Rx Enoxaparin [Lovenox] 180 mg SQ Q12HR #30 syringe 05/26/16 Unknown Rx Acetaminophen [Tylenol Arthritis] 650 mg PO Q6HR PRN #30 tablet.er 11/06/17 U nknown Rx Ondansetron [Zofran Odt] 4 mg PO Q8HR PRN #20 tab.rapdis 11/06/17 Unknown Rx Warfarin Sodium [Coumadin] 15 mg PO DAILY #10 tablet 12/25/17 Unknown Rx HYDROcodone/ACETAMINOPHEN [Posen 1 each PO Q6H PRN #12 tablet 01/31/18 Unknown Rx 7.5-325 Tablet] Ibuprofen [Motrin 600 MG tab] 600 mg PO Q8H PRN #21 tablet 01/31/18 Unknown Rx cephALEXin [Keflex] 500 mg PO Q8HR 10 Days #30 cap 01/31/18 Unknown Rx Famotidine [Pepcid] 20 mg PO Q12H #60 tablet 09/23/19 Unknown Rx Ondansetron [Zofran ODT TAB] 8 mg PO Q8HR PRN #20 tab.rapdis 09/23/19 Unknown Rx methOCARBAMOL [Robaxin TAB] 750 mg PO Q8H PRN #21 tablet 09/23/19 Unknown Rx traMADoL [Ultram] 50 mg PO Q6HR PRN #12 tablet 09/23/19 Unknown Rx Allergies Allergy/AdvReac Type Severity Reaction Status Date / Time No Known Allergies Allergy Verified 11/08/13 09:56 ED Review of Systems ROS: Stated complaint: NAUSEA,STOMACH CRAMPING Other details as noted in HPI Constitutional: denies: chills, fever Eyes: denies: eye pain, eye discharge, vision change ENT: denies: ear pain, throat pain Respiratory: denies: cough, shortness of breath, wheezing Cardiovascular: denies: chest pain, palpitations Endocrine: no symptoms reported Gastrointestinal: abdominal pain. denies: nausea, vomiting, diarrhea Genitourinary: denies: urgency, dysuria, discharge Musculoskeletal: denies: back pain, joint swelling, arthralgia Skin: denies: rash, lesions Neurological: denies: headache, weakness, paresthesias Psychiatric: denies: anxiety, depression Hematological/Lymphatic: denies: easy bleeding, easy bruising ED Past Medical Hx - Past Medical History Previous Medical History?: Yes Hx Congestive Heart Failure: No Hx Diabetes: No Hx Deep Vein Thrombosis: Yes Hx Pulmonary Embolism: No Hx Asthma: No Hx COPD: No Hx Tuberculosis: No Additional medical history: morbid obesity - Surgical History Past Surgical History?: No - Social History Smoking Status: Never Smoker Substance Use Type: None - Medications Home Medications: Home Medications Medication Instructions Recorded Confirmed Last Taken Type Ondansetron [Zofran TAB] 4 mg PO Q6HR PRN #12 tablet 01/21/14 Unknown Rx HYDROcodone/APAP 10-325 [Posen 1 each PO Q6HR PRN #20 tablet 01/25/14 Unknown Rx 10/325] Sulfamethoxazole/Trimethoprim 1 each PO BID #28 tablet 01/25/14 Unknown Rx [Bactrim Ds] Acetaminophen/Codeine 1 tab PO Q6H PRN #15 tab 11/05/14 Unknown Rx [Acetaminophen-Codeine #3 TAB] Amoxicillin [Trimox CAP] 500 mg PO Q8H #30 capsule 11/05/14 Unknown Rx predniSONE [Deltasone] 50 mg PO QDAY #5 tab 11/05/14 Unknown Rx Enoxaparin [Lovenox] 180 mg SQ Q12HR #30 syringe 05/26/16 Unknown Rx Acetaminophen [Tylenol Arthritis] 650 mg PO Q6HR PRN #30 tablet.er 11/06/17 Unknown Rx Ondansetron [Zofran Odt] 4 mg PO Q8HR PRN #20 tab.rapdis 11/06/17 Unknown Rx Warfarin Sodium [Coumadin] 15 mg PO DAILY #10 tablet 12/25/17 Unknown Rx HYDROcodone/ACETAMINOPHEN [Posen 1 each PO Q6H PRN #12 tablet 01/31/18 Unknown Rx 7.5-325 Tablet] Ibuprofen [Motrin 600 MG tab] 600 mg PO Q8H PRN #21 tablet 01/31/18 Unknown Rx cephALEXin [Keflex] 500 mg PO Q8HR 10 Days #30 cap 01/31/18 Unknown Rx Famotidine [Pepcid] 20 mg PO Q12H #60 tablet 09/23/19 Unknown Rx Ondansetron [Zofran ODT TAB] 8 mg PO Q8HR PRN #20 tab.rapdis 09/23/19 Unknown Rx methOCARBAMOL [Robaxin TAB] 750 mg PO Q8H PRN #21 tablet 09/23/19 Unknown Rx traMADoL [Ultram] 50 mg PO Q6HR PRN #12 tablet 09/23/19 Unknown Rx ED Physical Exam - General Limitations: No Limitations General appearance: alert, in no apparent distress, obese - Head Head exam: Present: atraumatic, normocephalic, normal inspection - Eye Eye exam: Present: normal appearance, PERRL, EOMI Pupils: Present: normal accommodation - ENT ENT exam: Present: normal exam, normal orophraynx, mucous membranes moist, TM's normal bilaterally, normal external ear exam - Neck Neck exam: Present: normal inspection, full ROM. Absent: tenderness - Respiratory Respiratory exam: Present: normal lung sounds bilaterally. Absent: respiratory distress, wheezes, rales, stridor, chest wall tenderness, accessory muscle use, decreased breath sounds - Cardiovascular Cardiovascular Exam: Present: regular rate, normal rhythm, normal heart sounds. Absent: systolic murmur, diastolic murmur, rubs, gallop - GI/Abdominal GI/Abdominal exam: Present: soft, normal bowel sounds. Absent: tenderness, guarding, rebound, hyperactive bowel sounds, hypoactive bowel sounds, organomegaly - Extremities Exam Extremities exam: Present: normal inspection, full ROM, normal capillary refill - Back Exam Back exam: Present: normal inspection, full ROM. Absent: tenderness, CVA tenderness (R), CVA tenderness (L), muscle spasm, paraspinal tenderness, vertebral tenderness - Neurological Exam Neurological exam: Present: alert, oriented X3, CN II-XII intact, normal gait, reflexes normal - Psychiatric Psychiatric exam: Present: normal affect, normal mood - Skin Skin exam: Present: warm, dry, intact, normal color. Absent: rash ED Course Vital Signs 09/22/19 23:13 Temperature 98.7 F Pulse Rate 105 H Respiratory 20 Rate Blood Pressure 155/82 O2 Sat by Pulse 95 Oximetry ED Medical Decision Making - Lab Data Result diagrams: 09/23/19 01:18 09/23/19 01:18 - Medical Decision Making This is a 34-year-old morbidly obese white female who presented to the ED with bilateral flank pain with nausea and vomiting intermittently for 4 days. In the ED, patient is alert and oriented 3 and is not in distress. Lab test results were reviewed and are nonactionable including urinalysis. Patient symptoms are likely due to muscle spasm muscle strain of the abdominal wall this is alert findings. Patient was tearful pain in the ED and was discharged home on medications including antacids, pain medications and muscle relaxants and was advised to follow-up with her primary care physician in 5-7 days for reevaluation. Patient was also advised to return to the ED immediately if symptoms get worse. - Differential Diagnosis muscle spasm; muscle strain; GERD; kidney stones; UTI Critical care attestation.: If time is entered above; I have spent that time in minutes in the direct care of this critically ill patient, excluding procedure time. ED Disposition Clinical Impression: Bilateral flank pain, Nausea and vomiting in adult Abdominal muscle strain Qualifiers: Encounter type: initial encounter Qualified Code(s): S39.011A - Strain of muscle, fascia and tendon of abdomen, initial encounter GERD (gastroesophageal reflux disease) Qualifiers: Esophagitis presence: without esophagitis Qualified Code(s): K21.9 - Gastro- esophageal reflux disease without esophagitis Disposition: TO HOME OR SELFCARE Is pt being admited?: No Does the pt Need Aspirin: No Condition: Stable Instructions: Abdominal Pain (ED), Muscle Strain (ED), Gastroesophageal Reflux Disease (ED), Acute Nausea and Vomiting (ED) Additional Instructions: Take medication with food, drink plenty of fluids and follow-up with your primary care physician in 5-7 days for reevaluation. Return to the ED immediately if symptoms get worse. Prescriptions: Famotidine [Pepcid] 20 mg PO Q12H #60 tablet methOCARBAMOL [Robaxin TAB] 750 mg PO Q8H PRN #21 tablet PRN Reason: Muscle Spasm traMADoL [Ultram] 50 mg PO Q6HR PRN #12 tablet PRN Reason: Pain Ondansetron [Zofran ODT TAB] 8 mg PO Q8HR PRN #20 tab.rapdis PRN Reason: Nausea Referrals: PRIMARY CARE, [Primary Care Provider] - 3-5 Days Time of Disposition: 05:29 Print Language: [place]
[2019-09-23 05:53] VITALS: BP 150/81
== END 2019-09-23 05:53 | disposition home or self-care (01) ==
LOC: ED 23:08
DX: S39.011A Strain of muscle, fascia and tendon of abdomen, initial encounter (principal); K21.9 Gastro-esophageal reflux disease without esophagitis; X58.XXXA Exposure to other specified factors, initial encounter; Y93.89 Activity, other specified; Y92.89 Other specified places as the place of occurrence of the external cause; Y99.8 Other external cause status
CPT/HCPCS: 36415; 80053; 81001; 84703; 85025